=== PATIENT | female | born 1975 | race Caucasian/White ===

== ENCOUNTER 2018-08-16 00:41 | Emergency (ER) | payer OTHER ==
[~2018-08-16] VITALS: Ht 170.2 cm; Wt 76.2 kg
[~2018-08-16 00:41] MED LIST: ATIVAN1 MG; CHLORPROMAZINE10 M2 PO; CIPRO500 MG PO; CIPROFLOXACIN500 M3 OR; COLACE100 MG PO; FIBERCON625 M1 PO; FLEXERIL PO; HYDROCODONE-AP1 EAC6 PO; HYDROCODONE-AP1 EACH PO; HYDROCODONE-APA1 TA1 PO; IBUPROFEN 200200 M1 PO; KEFLEX500 MG PO; MEDROLDOSEPACK PO; MIRALAX17 GM PO; NOHOMEMEDICATIONS; NORCO 5-325 TA1 EACH PO; PERCOCET 5-3251 EACH PO; PHENERGAN 25 MG25 MG PO; SOMA; VICODIN 5-5001 EACH PO; XANAX 1 MG TABLE1 MG PO; XANAX XR1 MG; ZOFRAN ODT4 MG PO; ZOFRAN4 MG PO
[2018-08-16] MEDS ORDERED: XANAX 0.5 MG0.5 MG PO (01:04)
[2018-08-16] MEDS ORDERED: NORCO 5-325 TA1 EACH PO (01:52)
[2018-08-16] MEDS ORDERED: FLEXERIL PO (02:01)
[2018-08-16 02:04] VITALS: BP 124/92
== END 2018-08-16 02:04 | disposition home or self-care (01) ==
LOC: M.ERS 00:41
DX: S80.02XA Contusion of left knee, initial encounter (principal); S90.812A Abrasion, left foot, initial encounter; F41.9 Anxiety disorder, unspecified; G43.909 Migraine, unspecified, not intractable, without status migrainosus; Z90.49 Acquired absence of other specified parts of digestive tract; Z87.442 Personal history of urinary calculi; Z88.0 Allergy status to penicillin; Z88.8 Allergy status to other drugs, medicaments and biological substances; W18.2XXA Fall in (into) shower or empty bathtub, initial encounter; Y93.E1 Activity, personal bathing and showering; Y92.89 Other specified places as the place of occurrence of the external cause; Y99.8 Other external cause status

== ENCOUNTER 2018-11-20 11:04 | Emergency (ER) | payer OTHER ==
[~2018-11-20] VITALS: Ht 170.2 cm; Wt 78.0 kg
[~2018-11-20 11:04] MED LIST changes: +XANAX 0.5 MG0.5 MG PO
[2018-11-20 11:44] LABS: ABSOLUTE EOSINOPHILS 0.1 thou/uL (0.0-0.7); ABSOLUTE LYMPHOCYTES 0.7 thou/uL (0.8-5.3); ABSOLUTE MONOCYTES 0.3 thou/uL (0.0-1.2); ABSOLUTE NEUTROPHILS 5.6 thou/uL (1.6-8.1); BASOPHILS 0.4 %; EOSINOPHILS 0.8 %; HEMATOCRIT 35.3 % (37.0-47.0); HEMOGLOBIN 12.1 gm/dL (12.0-15.0); LYMPHOCYTES 10.5 %; MCH 30.4 pg (26.0-34.0); MCHC 34.4 g/dL (28.0-37.0); MCV 88.4 fL (80.0-100.0); MPV 6.7 fl. (7.2-11.1); NUCLEATED RBCS 0 /100WBC; PLATELET COUNT* 296 thou/uL (150-400); POLYS 83.3 %; RBC 3.99 mil/uL (4.20-5.00); RDW-CV 13.4 % (10.5-14.5); WBC 6.7 thou/uL (4.0-11.0)
[2018-11-20 11:56] LABS: ANION GAP 9 mmol/L (7-16); BUN 9 mg/dL (7-18); CALCIUM 8.8 mg/dL (8.5-10.1); CHLORIDE 103 mmol/L (98-107); CO2 28 mmol/L (21-32); CREATININE 1.1 mg/dL (0.6-1.3); GLUCOSE 123 mg/dL (70-99); POTASSIUM 3.1 mmol/L (3.5-5.1); SODIUM 140 mmol/L (136-145)
[2018-11-20 12:13] LABS: ALBUMIN 4.1 g/dL (3.4-5.0); ALKALINE PHOSPHATASE 95 U/L (46-116); LIPASE 44 U/L (73-393); MAGNESIUM 1.8 mg/dL (1.8-2.4); NT-PRO BRAIN NAT PEPTIDE 684 pg/mL (<300); SGOT 28 U/L (15-37); SGPT 38 U/L (30-65); TOTAL BILIRUBIN 0.4 mg/dL (<0.1-1.0); TROPONIN-I LEVEL <0.06 ng/mL (<0.06)
[2018-11-20 13:20] LABS: URINE BILIRUBIN NEGATIVE (Negative); URINE BLOOD TRACE (Negative); URINE CLARITY SL CLOUDY; URINE COLOR YELLOW; URINE GLUCOSE-RANDOM NEGATIVE (Negative); URINE KETONES NEGATIVE (Negative); URINE LEUKOCYTES-REFLEX 1+ (Negative); URINE NITRITE-REFLEX NEGATIVE (Negative); URINE PROTEIN NEGATIVE (Negative); URINE SPECIFIC GRAVITY 1.015 (1.005-1.030); URINE UROBILINOGEN 0.2 E.U./dl (0.2-1.0)
[2018-11-20 13:25] LABS: SQUAMOUS >10 Many /LPF (0-3)
[2018-11-20 13:26] LABS: BACTERIA-REFLEX >30 Many /HPF (None Seen); URINE RBC None Seen /HPF (0-2); URINE WBC-REFLEX 0-5 Rare /HPF (0-5)
[2018-11-20 13:27] LABS: BARBITURATES Negative (Negative); BENZODIAZEPINES POSITIVE (Negative); CASTS None Seen /LPF (None Seen); METHADONE Negative (Negative); MUCUS 0-3 Light strn/LPF (None Seen); OPIATES Negative (Negative); PCP Negative (Negative); THC Negative (Negative)
[2018-11-20 13:28] LABS: CRYSTALS None Seen /LPF (None Seen)
[2018-11-20 13:37] LABS: AMP/METHAMP Negative (Negative); COCAINE Negative (Negative)
[2018-11-20] MEDS ORDERED: PERMETHRIN60 GM TOP (13:47)
[2018-11-20] MEDS ORDERED: BACTRIM DS TAB1 EAC1 PO (13:47)
[2018-11-20 14:32] VITALS: BP 161/77
--- NOTE | 2018-11-20 19:26 | EKG ---
[place] [address] ELECTROCARDIOGRAM REPORT Name: CRISTINA BUTTSANECLAYTON Og Room: [facility]#: [id number] Admission: 11/20/18 Attend Phys: Discharge: 11/20/18 Date of : 75 Report #: [id number] THIS REPORT FOR: //name// [facility] ED Test Date: 2018-11-20 Test Time: 11:10:12 Pat Name: BETH BUTTS Department: Room: Gender: F Janitorial Supervisor: : 1975 Requested By: Griffin Albarado Order Number: [id number] MD: Rosas Duckworth Measurements Intervals [place] Rate: 125 P: 31 TN: 155 QRS: 48 QRSD: 92 T: 9 QT: 264 QTc: 381 Interpretive Statements Sinus tachycardia Nonspecific repol abnormality, diffuse leads Compared to ECG 10/07/2014 01:07:15 Early repolarization now present Electronically Signed On 11-20-2018 19:26:34 CDT by Rosas Duckworth [email or web address] <ELECTRONICALLY SIGNED> By: Rosas Duckworth MD, [facility] 11/20/18 1926 1110 Rosas Duckworth MD, FAC /EPI
== END 2018-11-20 14:32 | disposition home or self-care (01) ==
LOC: M.ERS 11:04
PROVIDERS: Emergency Medicine Emergency Medical Services
DX: N39.0 Urinary tract infection, site not specified (principal); G43.909 Migraine, unspecified, not intractable, without status migrainosus; Z88.0 Allergy status to penicillin; Z91.048 Other nonmedicinal substance allergy status; Z90.49 Acquired absence of other specified parts of digestive tract; Z87.442 Personal history of urinary calculi

== ENCOUNTER 2019-03-07 17:36 | Emergency (ER) | payer OTHER ==
[~2019-03-07] VITALS: Ht 170.2 cm; Wt 74.8 kg
[~2019-03-07 17:36] MED LIST changes: +BACTRIM DS TAB1 EAC1 PO; +PERMETHRIN60 GM TOP
[2019-03-07] MEDS ORDERED: BELBUCA150 MCG PO (17:52)
[2019-03-07 18:10] LABS: ABSOLUTE EOSINOPHILS 0.1 thou/uL (0.0-0.7); ABSOLUTE LYMPHOCYTES 1.6 thou/uL (0.8-5.3); ABSOLUTE MONOCYTES 0.4 thou/uL (0.0-1.2); ABSOLUTE NEUTROPHILS 4.7 thou/uL (1.6-8.1); BASOPHILS 0.6 %; EOSINOPHILS 0.8 %; HEMATOCRIT 34.8 % (37.0-47.0); HEMOGLOBIN 12.2 gm/dL (12.0-15.0); LYMPHOCYTES 22.9 %; MCH 30.7 pg (26.0-34.0); MCHC 35.2 g/dL (28.0-37.0); MCV 87.4 fL (80.0-100.0); MPV 7.1 fl. (7.2-11.1); NUCLEATED RBCS 0 /100WBC; PLATELET COUNT* 340 thou/uL (150-400); POLYS 69.7 %; RBC 3.98 mil/uL (4.20-5.00); RDW-CV 13.4 % (10.5-14.5); WBC 6.8 thou/uL (4.0-11.0)
[2019-03-07 18:23] LABS: CALCIUM 8.3 mg/dL (8.5-10.1); CREATININE 0.9 mg/dL (0.6-1.3)
[2019-03-07 18:25] LABS: POTASSIUM 2.4 mmol/L (3.5-5.1)
[2019-03-07 18:28] LABS: ALBUMIN 4.3 g/dL (3.4-5.0); TOTAL BILIRUBIN 0.5 mg/dL (<0.1-1.0)
[2019-03-07 18:28] LABS: INFLUENZA A ANTIGEN Negative (Negative); INFLUENZA B ANTIGEN Negative (Negative)
[2019-03-07 19:16] LABS: URINE BLOOD NEGATIVE (Negative); URINE CLARITY CLEAR; URINE COLOR YELLOW; URINE GLUCOSE-RANDOM NEGATIVE (Negative); URINE KETONES NEGATIVE (Negative); URINE LEUKOCYTES-REFLEX NEGATIVE (Negative); URINE NITRITE-REFLEX NEGATIVE (Negative); URINE PROTEIN TRACE (Negative); URINE SPECIFIC GRAVITY >= 1.030 (1.005-1.030); URINE UROBILINOGEN 0.2 E.U./dl (0.2-1.0)
[2019-03-07 19:19] LABS: ICTOTEST (BILI CONFIRMATORY) Negative (Negative); URINE BILIRUBIN 1+ (Negative)
[2019-03-07] MEDS ORDERED: POTASSIUM20 PO (19:54)
[2019-03-07] MEDS ORDERED: VENTOLIN HFA 1818 GM INH (20:24)
[2019-03-07] MEDS ORDERED: LEVAQUIN 500 M500 MG PO (20:24)
[2019-03-07] MEDS ORDERED: PREDNISONE 20 M20 M1 PO (20:28)
[2019-03-07 20:45] VITALS: BP 161/96
[2019-03-08] MEDS ORDERED: PREDNISONE 20 M20 M1 PO (22:32)
[2019-03-08] MEDS ORDERED: LEVAQUIN 500 M500 MG PO (22:32)
[2019-03-08] MEDS ORDERED: POTASSIUM20 PO (22:32)
== END 2019-03-07 20:45 | disposition home or self-care (01) ==
LOC: M.ERS 17:36
PROVIDERS: Emergency Medicine
DX: J18.9 Pneumonia, unspecified organism (principal); F41.0 Panic disorder [episodic paroxysmal anxiety]; E87.6 Hypokalemia; R21 Rash and other nonspecific skin eruption; R30.0 Dysuria; G43.909 Migraine, unspecified, not intractable, without status migrainosus; Z88.0 Allergy status to penicillin; Z87.442 Personal history of urinary calculi; Z91.048 Other nonmedicinal substance allergy status